=== PATIENT | female | born 1925 | race African-American/Black ===

== ENCOUNTER 2016-12-11 14:13 | Emergency (ER) | payer OTHER ==
[2016-12-11 14:17] VITALS: BP 131/72; PULSE 87; TEMP 98; BMI 20.6
--- NOTE | 2016-12-11 15:40 | PDOC ---
History of Present Illness - General Chief Complaint: Pain Stated Complaint: LT SHOULDER PAIN Time Seen by Provider: 12/11/16 14:59 History Source: Patient Exam Limitations: No Limitations - History of Present Illness Initial Comments: 12/11/16 15:35 89 yr female with left shoulder swelling noted today by her daughter. Pt has history of dementia, alzheimers, daughter is unsure if she fell, she has fallen in the past. Pt denies fall, has full range of the shoulder. no history of gout. pt denies pain. 12/11/16 19:22 Method of Injury: reports: unknown Past History - Past Medical History Allergies/Adverse Reactions: Allergies Allergy/AdvReac Type Severity Reaction Status Date / Time No Known Drug Allergies Allergy Verified 12/11/16 14:18 Home Medications: Ambulatory Orders Tiotropium [place] [Spiriva] 1 inh IH DAILY 05/20/12 Atorvastatin Ca [Lipitor] 20 mg PO HS 12/11/16 Fluticasone Prop 0.05% Nasal [Flonase -] 1 - 2 spray NS DAILY 12/11/16 Memantine HCl/Donepezil HCl [Namzaric 28 mg-10 mg Capsule] 1 each PO DAILY 12/11 Multivit-Min/Iron/Folic/Lutein [Centrum Silver Women Tablet] 1 each PO DAILY 02/16 Anemia: Yes (takes vit b12 shots) Asthma: Yes Cancer: No Cardiac Disorders: No CVA: No COPD: Yes CHF: No Dementia: No (forgetfulness) Diabetes: No GI Disorders: No Disorders: No HTN: Yes Hypercholesterolemia: No Liver Disease: No Seizures: No Thyroid Disease: No - Psycho/Social/Smoking Cessation Hx Suicidal Ideation: No Smoking Status: No Smoking History: Never smoked Have you smoked in the past 12 months: No Number of Cigarettes Smoked Daily: 0 Information on smoking cessation initiated: No Hx Alcohol Use: No Drug/Substance Use Hx: No Substance Use Type: None Hx Substance Use Treatment: No Review of Systems - Review of Systems Able to Perform ROS?: Yes Is the patient limited Wolof proficient: No Constitutional: No: Symptoms Reported HEENTM: No: Symptoms Reported Respiratory: No: Symptoms reported Cardiac (ROS): No: Symptoms Reported ABD/GI: No: Symptoms Reported : No: Symptoms Reported Musculoskeletal: Yes: Symptoms Reported *Physical Exam - Vital Signs Last Vital Signs Temp Pulse Resp BP Pulse Ox 98 F 87 18 131/72 99 12/11/16 14:15 12/11/16 14:15 12/11/16 14:15 12/11/16 14:15 12/11/16 14:15 - Physical Exam General Appearance: Yes: Nourished, Appropriately Dressed HEENT: positive: EOMI, MARÍA, TMs Normal, Pharynx Normal Neck: positive: Supple Respiratory/Chest: positive: Lungs Clear, Normal Breath Sounds Cardiovascular: positive: Regular Rhythm, Regular Rate Musculoskeletal: positive: Normal Inspection Extremity: positive: Normal Capillary Refill, Swelling (left shoulder ), Other ( limited abduction, full range otherwise ). negative: Tender Integumentary: positive: Normal Color, Dry, Warm Neurologic: positive: putty tinter maker II-XII NML intact, Fully Oriented, Alert, Normal Mood/ Affect, Normal Response, Motor Strength 5/5 Procedures - Splinting Pre-Made Type: arm sling ED Treatment Course - RADIOLOGY Radiology Studies Ordered: Category Date Time Status HUMERUS-LEFT [RAD] Stat Radiology 12/11/16 15:12 Completed SHOULDER-LEFT [RAD] Stat Radiology 12/11/16 15:12 Completed Medical Decision Making - Medical Decision Making 12/11/16 15:41 cc: left shoulder swelling , warm not hot to touch, no redness pt has FROM with limited abduction , non tender to touch will get xray of left shoulder r/o fracture pt is with her daughter who takes care of her and states if she uses a sling she will monitor her to make sure she doesn't injure herself with the sling. I have instructed her to remove sling at bedtime and to not use the sling unsupervised. 12/11/16 19:22 *DC/Admit/Observation/Transfer Diagnosis at time of Disposition: Swelling of shoulder joint Qualifiers: Laterality: left Qualified Code(s): M25.412 - Effusion, left shoulder - Discharge Dispostion Disposition: HOME Condition at time of disposition: Good - Referrals Referrals: Jose Angel Corral MD [Staff Physician] - - Patient Instructions Additional Instructions: follow with the orthopedist this week if swelling continues or worsens any changes in condition return too the ER any fever, redness, or decrease in movement
== END 2016-12-11 15:48 | disposition home or self-care (01) ==
LOC: JERFT 14:13
DX: M25.412 Effusion, left shoulder (principal); G30.8 Other Alzheimer's disease; F02.80 Dementia in other diseases classified elsewhere, unspecified severity, without behavioral disturbance, psychotic disturbance, mood disturbance, and anxiety
CPT/HCPCS: 73030-TC-LT; 73060-TC-LT; 99281-25